=== PATIENT | female | born 1990 | race Caucasian/White ===

== ENCOUNTER 2020-05-28 14:05 | Emergency (ER) | payer OTHER, SELFPAY ==
--- NOTE | 2020-05-28 14:06 | ED.GENADULT ---
HPI - General Adult General Chief complaint: Extremity Problem,Nontraumatic Stated complaint: L FOOT PAIN Time Seen by Provider: 05/28/20 14:06 Source: patient Mode of arrival: ambulatory Limitations: no limitations History of Present Illness HPI narrative: 30-year-old female patient presents to the [facility] with complaints of left heel pain that has a bump to it for the past month. Patient states she thinks it might be a wart and she has been using Tylenol for the pain as well as some [id number] wart removal which has not helped. Patient states it hurts worse when trying to walk. Patient denies any open wounds, drainage, swelling to the foot. Denies fevers body aches or chills Related Data Home Medications Medication Instructions Recorded Confirmed Zoloft 05/28/20 lorazepam 05/28/20 Allergies Allergy/AdvReac Type Severity Reaction Status Date / Time No Known Allergies Allergy Verified 05/28/20 14:14 Review of Systems Review of Systems: Narrative: CONSTITUTIONAL: Denies fever, chills, or sweats. EYES: Denies visual changes, redness, or discharge. ENT: Denies rhinorrhea, congestion, sore throat, or otalgia. CARDIOVASCULAR: Denies chest pain, palpitations, or edema. RESPIRATORY: Denies cough or dyspnea. GASTROINTESTINAL: Denies abdominal pain, nausea, vomiting, or diarrhea. GENITOURINARY: Denies dysuria or hematuria. SKIN: Denies rash or itching. MUSCULOSKELETAL: Denies back pain, joint pain, or myalgia. Positive left heel pain x1 month NEUROLOGIC: Denies headache, numbness, or weakness. PSYCHIATRIC: Denies anxiety or depression. [facility] Past Medical History Medical History (Updated 05/28/20 @ 14:32 by KATY Ibarra) Anxiety Depression Comments At the time of my signature I agree with nursing past medical history, surgical, social, and family history. There is no relevant family history pertinent to the presenting complaint. Exam Narrative: Exam Narrative: GENERAL: Well-appearing, well-nourished, and in no acute distress. HEAD: Normocephalic, atraumatic. EYES: PERRLA and EOMI. ENT: Nares clear, no rhinorrhea or epistaxis. Mucous membranes moist. NECK: Supple. No lymphadenopathy CHEST: Clear to auscultation. No respiratory distress. HEART: Regular rate and rhythm. No murmur heard. Normal peripheral pulses. ABDOMEN: Soft, nontender, nondistended, normal active bowel sounds. EXTREMITIES: Patient able to bear weight and ambulate without pain. No surface trauma, since, erythema, lesions, ulcers or break in skin integrity. The L foot is without obvious asymmetry or deformity when compared to the R foot. No bony step-off, nontender to palpation over the toes, midfoot or hindfoot or sole. Patient does have an obvious circular wart noted to the heel of the sole. It is tender to the touch. There is no open wounds, drainage, redness or swelling present. Normal plantar/dorsiflexion, inversion/eversion. Distal motor and neurovascular status are intact SKIN: Warm, dry, no rash. NEURO: No focal deficits. Alert and oriented x3. Course Vital Signs Vital signs: Vital signs reviewed. Medical Decision Making Differential Diagnosis Differential Diagnosis: Differential diagnosis: Foot fracture, crush injury, compartment syndrome, contusion, sprain, tendinitis,lisfranc sprain or fracture, avulsion fracture, grown toenail, diabetic ulcer. Discussed with patient this does appear to be a plantar wart. Discussed with her that these can take some time along time to go away. Discussed with her that she can continue using some [id number] wart removal treatments and I would also recommend trying to use the duct tape technique. I explained this to her. Discussed with her that she can take Tylenol or ibuprofen for the pain and that when she is up walking she needs to be using some cushioning Band-Aids over the area to help decrease the pain. Discussed with patient that I will also give her [facility] ph
[2020-05-28 14:38] VITALS: BP 122/75; PULSE 84; RESP 16; TEMP 36.5; O2SAT 100
== END 2020-05-28 14:39 | disposition home or self-care (01) ==
PROVIDERS: Emergency Provider Nurse Practitioner Family
DX: B07.0 Plantar wart (principal); F41.9 Anxiety disorder, unspecified; F32.9 Major depressive disorder, single episode, unspecified
CPT/HCPCS: 99211; G0463

== ENCOUNTER 2023-12-09 08:19 | Outpatient (CLI) | payer OTHER, SELFPAY | END 2023-12-09 08:20 | disposition home or self-care (01) | LOC: ANHAUDASC 08:21 | PROVIDERS: PCP Physician Assistant; Visit Provider Otolaryngology | DX: H81.10 Benign paroxysmal vertigo, unspecified ear (principal); H69.92 Unspecified Eustachian tube disorder, left ear; H90.6 Mixed conductive and sensorineural hearing loss, bilateral | CPT/HCPCS: 92557; 92567 ==